=== PATIENT | female | born 1985 | race Caucasian/White ===

== ENCOUNTER 2023-03-28 09:30 | Outpatient (CLI) | payer MEDICAID, SELFPAY ==
--- NOTE | 2023-03-28 09:47 | XR_ITS ---
WS: [id number] XR lumbar spine f/e only [id number] REASON FOR EXAM: ANESTHESIA OF SKIN FINDINGS: There is moderate straightening of the normal lordosis of the lumbar cervical spine on the lateral vi ew. No compression deformity or focal vertebral body lesion of the lumbar vertebrae. Lumbar intervertebral disc spaces are relatively well-preserved. No spondylolisthesis or spondylolysis in the neutral position. No abnormal vertebral body movement with flexion or extension. XR/XR lumbar spine f/e only [id number] IMPRESSION: Moderate straightening of the normal lordotic curve of the lumbar cervical spin e.
== END 2023-03-28 09:31 | disposition home or self-care (01) ==
PROVIDERS: Family Provider Family Medicine; PCP Nurse Practitioner; Visit Provider Nurse Practitioner
DX: R20.0 Anesthesia of skin (principal); M40.56 Lordosis, unspecified, lumbar region
CPT/HCPCS: 72120

== ENCOUNTER 2023-04-27 10:59 | Outpatient (CLI) | payer MEDICAID, SELFPAY ==
--- NOTE | 2023-04-27 11:08 | MR_ITS ---
WS: [id number] MRI LUMBAR SPINE NONCONTRAST HISTORY: L LEG WEAKNESS/ANESTHESIA OF SKIN COMPARISON: None available. TECHNIQUE: Sagittal and axial multisequence imaging is submitted. C5-6 small central disc protrusion contacting the ventral cervical cord. Mild long curvature thoracic spine to the RIGHT. Transitional lumbosacral segment. S1 is partially lumbarized. This numbering pattern will be importan t if surgery is ever contemplated in this patient. Lumbar vertebral bodies are mildly straightened but otherwise normally aligned. Disc base narrowing and desiccation at L5-S1. No marrow edema or fracture. Conus terminates normally at L1. L1-L2: Normal. L2-L3: Normal. L3-L4: Very minimal disc bulging. Small amount of fluid in the facet joints. No stenosis. L4-L5: Mild annular disc bulging. Mild ligamentum flavum and facet arthritis. Disc mildly encroaches upon the traversing L5 nerve roots. L5-S1: Diffuse annular disc bulging. Moderate bilateral paracentral disc protrusions with slightly gr eater contact on the LEFT thecal sac. There is more significant disc contact and displacement on the traversing LEFT S1 nerve root. Marked narrowing of the L5-S1 facet joint with ligamentum flavum hyper trophy. No foraminal stenosis. Mild central stenosis. There is a small amount of edema in the paraspi nal soft tissues adjacent to the L5-S1 spinous processes. S1-S2 rudimentary disc. No stenosis. IMPRESSION: 1. Transitional lumbosacral segment. The S1 vertebral body is lumbarized. If surgery is contemplated in this patient this will be an important imaging finding to review. 2. L5-S1: Moderate bilateral paracentral disc protrusions contacting the thecal sac in the subarticul ar recesses. Slightly greater contact on the LEFT traversing S1 nerve root. Mild central stenosis. 3. L4-5: Mild disc encroachment upon the traversing L5 nerve roots in the subarticular recesses.
== END 2023-04-27 11:00 | disposition home or self-care (01) ==
PROVIDERS: PCP Nurse Practitioner; Visit Provider Nurse Practitioner
DX: R53.1 Weakness (principal); R20.0 Anesthesia of skin; Q76.49 Other congenital malformations of spine, not associated with scoliosis; M51.27 Other intervertebral disc displacement, lumbosacral region; M48.07 Spinal stenosis, lumbosacral region
CPT/HCPCS: 72148

== ENCOUNTER 2023-05-05 20:13 | Emergency (ER) | payer MEDICAID, SELFPAY ==
[2023-05-05 20:20] VITALS: BP 117/83; PULSE 115; RESP 18; TEMP 37.1; O2SAT 96; BMI 25.7
== END 2023-05-06 00:14 | disposition left against medical advice (07) ==
PROVIDERS: Emergency Provider Family Medicine; PCP Nurse Practitioner
DX: Z53.21 Procedure and treatment not carried out due to patient leaving prior to being seen by health care provider (principal)